=== PATIENT | female | born 1955 | race Caucasian/White ===

== ENCOUNTER 2024-04-24 19:03 | Emergency (ER) | payer MEDICAID, MEDICARE ==
[~2024-04-24] VITALS: Ht 157.5 cm; Wt 54.0 kg
[2024-04-24 19:08] VITALS: TEMP 98.4; O2SAT 98
[2024-04-24] MEDS ORDERED: ACETAMINOPHEN 325MG TABLET PO ONE (19:15)
[2024-04-24 22:18] VITALS: BP 132/66; PULSE 68; RESP 14
== END 2024-04-24 22:19 | disposition home or self-care (01) ==
LOC: ER 19:03
DX: S06.0X0A Concussion without loss of consciousness, initial encounter (principal); S01.81XA Laceration without foreign body of other part of head, initial encounter; F41.9 Anxiety disorder, unspecified; I10 Essential (primary) hypertension; W18.39XA Other fall on same level, initial encounter; Y93.89 Activity, other specified; Y92.89 Other specified places as the place of occurrence of the external cause; Y99.8 Other external cause status
CPT/HCPCS: 70450; 12013; 99284; Z7610

== ENCOUNTER 2024-05-02 08:35 | Emergency (ER) | payer MEDICARE, MEDICAID ==
[~2024-05-02] VITALS: Ht 152.4 cm; Wt 80.0 kg
[2024-05-02 08:58] VITALS: O2SAT 98
[2024-05-02 09:45] VITALS: BP 148/71; PULSE 73; RESP 18; TEMP 98.3
== END 2024-05-02 10:57 | disposition home or self-care (01) ==
LOC: ER 09:02
DX: S01.81XD Laceration without foreign body of other part of head, subsequent encounter (principal); F41.9 Anxiety disorder, unspecified; I10 Essential (primary) hypertension; X58.XXXD Exposure to other specified factors, subsequent encounter
CPT/HCPCS: 99281